=== PATIENT | female | born 1925 | race Caucasian/White ===

== ENCOUNTER 2016-06-29 17:58 | Inpatient (IN) | payer MEDICARE, BC ==
[2016-06-29] MEDS ORDERED: FUROSEMIDE 10 MG/ML 4 ML VIAL ONE (19:51)
[2016-06-29] MEDS ORDERED: LORazepam 2 MG/ML SYRINGE ONE (19:51)
[2016-06-29] MEDS ORDERED: LORazepam 2 MG/ML SYRINGE IV STA (19:54)
[2016-06-29] MEDS ORDERED: FUROSEMIDE 10 MG/ML 4 ML VIAL IV STA (19:54)
[2016-06-29] MEDS ORDERED: IPRATROPIUM-ALBUTEROL 3 ML NEB INHALATION STA (19:56)
[2016-06-29] MEDS ORDERED: traMADol 50 MG TAB PO PRN (22:30)
[2016-06-30] MEDS: FUROSEMIDE 10 MG/ML 4 ML VIAL IV SCH ×3 (03:24→19:30)
[2016-06-30] MEDS: MELATONIN 3 MG TABLET PO SCH ×2 (03:25→22:29)
[2016-06-30] MEDS: ATORVASTATIN 40 MG TAB PO SCH ×2 (03:25→21:55)
[2016-06-30 06:46] LABS: Anisocytosis Slight; Basophils % (A) 0 %; CH 29.1; CHCM 30.9; Eosinophils % (A) 1 %; HCT 23.8 % (34.0-46.0); HDW 3.21; HGB 7.5 gm/dL (11.4-16.0); Hypochromasia Marked; Luc # (Auto) 0.19; Luc % (Auto) 3; Lymphocytes # (A) 0.8 k/uL (1.0-4.8); Lymphocytes % (A) 13 %; MCH 29.7 pg (25.0-35.0); MCHC 31.4 g/dL (31.0-37.0); MCV 94.6 fL (80.0-100.0); Mean Platelet Volume 7.1; Monocytes # (A) 0.4 k/uL (0-1.0); Monocytes % (A) 7 %; Neutrophils # (A) 4.4 k/uL (1.3-7.7); Neutrophils % (A) 75 %; RBC 2.52 m/uL (3.80-5.40); RDW 17.6 % (11.5-15.5); WBC 5.8 k/uL (3.8-10.6); WBC (Perox) 6.07
[2016-06-30] MEDS: LEVALBUTEROL NEB 1.25 MG/3 ML AMP INHALATION SCH ×5 (06:48→21:01)
[2016-06-30 06:50] LABS: Magnesium 1.9 mg/dL (1.6-2.3); Potassium 4.6 mmol/L (3.5-5.1)
[2016-06-30] MEDS: SUCRALFATE 1 GM TAB PO SCH ×2 (08:42→15:29)
[2016-06-30] MEDS: LORATADINE 10 MG TAB PO SCH (08:42)
[2016-06-30] MEDS: PANTOPRAZOLE 40 MG/10 ML VIAL IVP SCH (08:42)
[2016-06-30] MEDS: IRON POLYSACCHARIDES COMPLEX 150 MG CAP PO SCH (08:42)
[2016-06-30] MEDS: LISINOPRIL 10 MG TAB PO SCH (08:42)
[2016-06-30] MEDS: FLUoxetine HCL 20 MG CAP PO SCH (08:42)
[2016-06-30] MEDS: CALCIUM CARBONATE 500 MG CHEWABLE PO SCH (08:42)
--- NOTE | 2016-06-30 09:22 | P.HPIM ---
History of Present Illness H&P Date: 06/30/16 Chief Complaint: Worsening shortness of breath and anemia Patient is an 89-year-old female patient of Dr. Sally bone, who presented to [facility] emergency room transferred from [facility] after presenting with worsening shortness of breath, patient has known history of chronic anemia she was admitted last month that the [facility] and there is a care of my partner Dr. Shea, for evaluation of chronic anemia. Patient is unable to give any significant history, from review of her records, she has known history of chronic gastrointestinal bleeding she is not a candidate for any gastroenterology surgery she has been receiving 1-2 units of red blood cells transfusion every 4-5 weeks. Her past medical history is also significant for hypertension, COPD, peptic ulcer disease her last EGD was done in 2006 Social history patient lived at home until recently she was admitted to [facility] She does not smoke drink alcohol or use any kind of illicit drugs Past surgical history significant for hysterectomy, and cervical fusion with bone graft in the 1980s Review of Systems Cardiovascular: Reports shortness of breath Respiratory: Reports cough Past Medical History Past Medical History: Chest Pain / Angina, Dementia, GERD/Reflux, GI Bleed, Hearing Disorder / Deafness, Hyperlipidemia, Hypertension, Memory Impairment, Mitral Valve Prolapse (MVP), Osteoarthritis (OA), Pneumonia, Respiratory Disorder Additional Past Medical History / Comment(s): UTI, ARTHRITIS,CARPAl TUNNEL, SCOLIOSIS, ANEMIA History of Any Multi-Drug Resistant Organisms: None Reported Past Surgical History: Adenoidectomy, Back Surgery, Hysterectomy, Tonsillectomy Additional Past Surgical History / Comment(s): cervical surgery, CATARACTS Past Anesthesia/Blood Transfusion Reactions: No Reported Reaction Past Psychological History: Anxiety, Depression Smoking Status: Never smoker Past Alcohol Use History: None Reported Past Drug Use History: None Reported - Past Family History Mother Family Medical History: Unable to Obtain Father Family Medical History: Unable to Obtain Medications and Allergies Home Medications Medication Instructions Recorded Confirmed Type ALPRAZolam [Alprazolam Odt] 0.25 mg PO Q8HR PRN 09/24/13 06/29/16 History Acetaminophen Tab [Tylenol] 650 mg PO Q6H 09/24/13 09/24/13 History Acetaminophen [Tylenol] 650 mg PO DAILY 09/24/13 09/24/13 History Benazepril HCl [Lotensin] 20 mg PO DAILY 09/24/13 06/29/16 History Calcium Carbonate [Antacid] 600 mg PO DAILY 09/24/13 06/29/16 History Dok 100 mg PO HS 09/24/13 09/24/13 History FLUoxetine HCL 60 mg PO DAILY 09/24/13 09/24/13 History Flaxseed [Flaxseed Oil] 1,000 mg PO DAILY 09/24/13 06/29/16 History I Caps 1 tab PO BID 09/24/13 09/24/13 History Omeprazole [PriLOSEC] 20 mg PO DAILY 09/24/13 06/29/16 History Simvastatin [Zocor] 80 mg PO HS 09/24/13 06/29/16 History traMADol HCl [Ultram] 50 mg PO Q6H PRN 09/24/13 06/29/16 History Benazepril HCl [Benazepril HCl] 10 mg PO DAILY 06/29/16 06/29/16 History FLUoxetine HCL [Fluoxetine HCl] 20 mg PO DAILY 06/29/16 06/29/16 History Iron Polysaccharide Complex 150 mg PO DAILY 06/29/16 06/29/16 History [Myferon 150] Loratadine [Claritin] 10 mg PO DAILY 06/29/16 06/29/16 History Sucralfate [Sucralfate] 1 tab PO AC-BID 06/29/16 06/29/16 History Allergies Allergy/AdvReac Type Severity Reaction Status Date / Time No Known Allergies Allergy Verified 09/24/13 19:24 Physical Exam Vitals: Vital Signs Temp Pulse Pulse Resp BP Pulse Ox 06/30/16 04:00 98.1 F 85 20 124/69 100 06/30/16 00:00 98.9 F 98 18 120/68 97 06/29/16 20:00 99.0 F 83 28 H 126/66 99 06/29/16 19:58 88 06/29/16 19:50 88 06/29/16 19:38 99.0 F 83 18 126/66 99 Intake and Output 06/29/16 06/30/16 06/30/16 22:59 06:59 14:59 Other: Voiding Method Diaper Diaper # Voids 1 2 # Bowel Movements 1 1 Weight 55 kg 61 kg In general patient is alert confused in no apparent distress HEENT head normocephalic and atraumatic Neck is supple no JVD no goiter no lymphadenopathy Chest exam reveals coarse crackles in both lung lester no wheezing Cardiac exam reveals regular heart sounds S1 and S2 no gallops no murmurs Abdomen is soft nontender no organomegaly with normal bowel sounds Extremity exam reveals no edema no cyanosis or clubbing Neurological examination reveals no gross focal deficits Results CBC & Chem 7: 06/30/16 06:08 06/30/16 06:08 Labs: Abnormal Lab Results - Last 24 Hours (Table) 06/30/16 06/30/16 Range/Units 06:08 06:08 RBC 2.52 L (3.80-5.40) m/uL Hgb 7.5 L (11.4-16.0) gm/dL Hct 23.8 L (34.0-46.0) % RDW 17.6 H (11.5-15.5) % Lymphocytes # 0.8 L (1.0-4.8) k/uL BUN 27 H (7-17) mg/dL Creatinine 1.07 H (0.52-1.04) mg/dL Glucose 114 H (74-99) mg/dL Thrombosis Risk Factor Assmnt - Choose All That Apply Any of the Below Risk Factors Present?: Yes Each Factor Represents 1 point: Heart failure (<1month) Each Risk Factor Represents 3 Points: Age 75 years or older Other congenital or acquired thrombophilia - If yes, enter type in comment: No Thrombosis Risk Factor Assessment Total Risk Factor Score: 4 Thrombosis Risk Factor Assessment Level: Moderate Risk Assessment and Plan Plan: #1 anemia, hemoglobin on presentation 7.5, patient has a known history of chronic blood loss anemia requiring frequent transfusion At this time will give 1 unit of red blood cell transfusion, will give IV Lasix to avoid further pulmonary congestion #2 shortness of breath, which is multifactorial related in part to patient's anemia, d-dimer was done to rule out pulmonary embolism, patient has evidence of pulmonary congestion likely related to acute exacerbation of congestive heart failure, at this time will obtain echocardiogram and BNP and chest x-ray Will treat with IV Lasix as needed #3 underlying history of COPD patient uses updrafts at the snf Will consult pulmonary #4 underlying history of hypertension #5 underlying history of hyperlipidemia #6 known history of peptic ulcer disease Plan at this time to treat with IV Lasix, give 1 unit of red blood cell transfusion Obtain chest x-ray and echocardiogram Obtain BNP and d-dimer Further treatment will depend on testing results
[2016-06-30] MEDS: IPRATROPIUM 0.5 MG/2.5 ML NEBU INHALATION SCH ×4 (10:11→21:01)
--- NOTE | 2016-06-30 10:11 | XR ---
EXAMINATION TYPE: XR chest 1V portable DATE OF EXAM: 06/30/2016 10:04 AM HISTORY: dyspnea. REFERENCE: Previous study dated 09/24/2013. FINDINGS: The heart is enlarged. There is diffuse interstitial change. Please part of this is chronic . There is some atelectasis in the right lower lung. Both CP angles are chronically blunted. Note is made of severe degenerative change of both shoulders. IMPRESSION: 1. CARDIOMEGALY. 2. PLATELIKE ATELECTASIS, RIGHT LOWER LUNG. 3. INTERSTITIAL CHANGE. SOME OF THIS APPEARS CHRONIC. 4. CHRONIC PLEURAL REACTION, BOTH LUNG BASES. 5. SEVERE DEGENERATIVE CHANGE IN BOTH SHOULDERS.
[2016-06-30 10:39] LABS: Iron 15 ug/dL (37-170)
[2016-06-30 10:49] LABS: % Iron Saturation 5.1 % (20-50); Total Iron Binding Capacity 292 ug/dL (265-497)
[2016-06-30 11:50] LABS: Vitamin B12 >1000 pg/mL
--- NOTE | 2016-06-30 14:46 | CONS ---
DATE OF CONSULTATION: Mrs. Callaway is an 89-year-old female who was transferred from [facility] with symptoms of progressive dyspnea. I am not able to obtain any history from the patient. She has history of dementia. Reviewing the records and the transfer notes, patient has recently been discharged from [facility] after being admitted for progressive dyspnea. She has a known history of chronic anemia and has been receiving transfusions on a regular basis. Apparently became more short of breath and was transferred. Reviewing the records from [facility], it appears that she had an echocardiogram, although I am not quite sure about the timing, but the echocardiogram showed a preserved systolic function. Patient is not able to tell me if she had any chest pain. She is not quite sure why she is in the hospital. The anemia has been chronic and she has been seen by the GI service in the past. Her past medical history is remarkable for hypertension, history of peptic ulcer disease. She has history of chronic dementia. Her medications at the time of presentation include albuterol, Protonix, benazepril 10 mg daily, metoprolol tartrate 25 mg twice a day, aspirin, Lipitor 40 mg daily, magnesium. Review of systems is not available. PHYSICAL EXAMINATION: She is an 89-year-old female, alert, confused, in no apparent distress. Blood pressure 116/60 with a heart rate in 90s. HEAD: Normocephalic. EYES: Sclerae nonicteric. NECK: No jugular venous distention. LUNGS: No wheezes or rales. HEART: Regular rate and rhythm. S1, S2, no S3, with systolic murmur heard at the base. No diastolic murmur. No rub. Abdomen is soft and nontender. Positive bowel sounds. No organomegaly. EXTREMITIES: No edema. Intact distal pulses. Lab data revealed NT-proBNP of 4470, troponin less than 0.012. BUN and creatinine 27 and 1.07. Potassium 4.6, hemoglobin of 7.5. EKG sinus mechanism, normal axis and intervals, no acute changes. IMPRESSION: 1. Symptoms of progressive dyspnea, most likely exacerbated by significant anemia. On physical examination there is no overt signs of congestive heart failure and no evidence of fluid overload. 2. History of dementia. 3. Hypertension. RECOMMENDATION: Will try to obtain the prior work-up that was done at [facility]. I would expect we should be able to switch her to oral diuretics tomorrow. She will receive transfusion for Dr. Wang and depending on her progress, further recommendation will be made. I would not recommend any aggressive cardiac work-up. Thank you for this consult. Will follow with you.
[2016-06-30] MEDS: ALPRAZolam 0.25 MG TAB PO PRN (15:29)
[2016-06-30] MEDS ORDERED: methylPREDNISolone SOD SUCCI 125 MG/2 ML VIAL IV STA (20:31)
[2016-06-30] MEDS ORDERED: LORazepam 2 MG/ML SYRINGE IV PRN (20:54)
[2016-06-30] MEDS ORDERED: LORazepam 2 MG/ML SYRINGE ONE (21:02)
[2016-07-01 06:41] LABS: Anisocytosis Slight; Basophils % (A) 0 %; CH 29.3; CHCM 31.3; Eosinophils % (A) 0 %; HCT 25.6 % (34.0-46.0); HDW 3.19; Hypochromasia Moderate; Luc # (Auto) 0.03; Luc % (Auto) 1; Lymphocytes # (A) 0.3 k/uL (1.0-4.8); Lymphocytes % (A) 5 %; MCH 29.5 pg (25.0-35.0); MCHC 31.4 g/dL (31.0-37.0); Mean Platelet Volume 6.8; Monocytes # (A) 0.1 k/uL (0-1.0); Monocytes % (A) 1 %; Neutrophils # (A) 5.1 k/uL (1.3-7.7); Neutrophils % (A) 93 %; RBC 2.72 m/uL (3.80-5.40); RDW 17.4 % (11.5-15.5); WBC 5.4 k/uL (3.8-10.6); WBC (Perox) 5.79
[2016-07-01 06:47] LABS: Potassium 4.4 mmol/L (3.5-5.1); Total Bilirubin 0.3 mg/dL (0.2-1.3); Total Protein 6.1 g/dL (6.3-8.2)
[2016-07-01] MEDS: SUCRALFATE 1 GM TAB PO SCH ×2 (06:57→15:42)
--- NOTE | 2016-07-01 09:04 | NM ---
EXAMINATION TYPE: NM pul vent and perfuse DATE OF EXAM: 07/01/2016 8:55 AM COMPARISON: NONE HISTORY: Elevated d-dimer TECHNIQUE: Utilizing inhalation of 71.5 mCi Tc 99m DTPA aerosol and intravenous injection of 5.5 mCi of Tc 99m MAA, ventilation and perfusion images are acquired post injection in multiple projections. FINDINGS: There are no VQ mismatches. IMPRESSION: THIS EXAMINATION IS LOW PROBABILITY FOR PULMONARY EMBOLUS.
[2016-07-01] MEDS: LEVALBUTEROL NEB (CONC) 1.25 MG/0.5 ML AMP INHALATION SCH ×4 (09:07→20:33)
[2016-07-01] MEDS: IPRATROPIUM 0.5 MG/2.5 ML NEBU INHALATION SCH ×4 (09:08→20:33)
[2016-07-01] MEDS: FUROSEMIDE 10 MG/ML 4 ML VIAL IV SCH (09:18)
[2016-07-01] MEDS: PANTOPRAZOLE 40 MG/10 ML VIAL IVP SCH (09:18)
[2016-07-01] MEDS: FLUoxetine HCL 20 MG CAP PO SCH (09:18)
[2016-07-01] MEDS: LORATADINE 10 MG TAB PO SCH (09:18)
[2016-07-01] MEDS: LISINOPRIL 10 MG TAB PO SCH (09:18)
[2016-07-01] MEDS: CALCIUM CARBONATE 500 MG CHEWABLE PO SCH (09:18)
[2016-07-01] MEDS: IRON POLYSACCHARIDES COMPLEX 150 MG CAP PO SCH (09:18)
[2016-07-01 10:39] VITALS: BMI 29.0
--- NOTE | 2016-07-01 11:31 | P.PN ---
Subjective Patient is alert and awake today. She is a very poor historian and known to have underlying dementia. She appears comfortable today. She denies any shortness of breath. Hemoglobin is relatively stable. She is diuresing well. Objective - Vital Signs Vital signs: Vital Signs Temp 98.1 F 07/01/16 11:17 Pulse 111 H 07/01/16 11:17 Resp 16 07/01/16 11:17 BP 115/56 07/01/16 11:17 Pulse Ox 98 07/01/16 11:17 Intake & Output 06/30/16 07/01/16 07/01/16 18:59 06:59 18:59 Intake Total 120 100 Balance 120 100 Weight 58.5 kg 58.5 kg Intake: IV 100 cefTRIAXone 1,000 mg In 100 Sodium Chloride 0.9% 50 ml @ 100 mls/hr IVPB ONCE STA Rx#:[id number] Oral 120 Other: Voiding Method Diaper Diaper Diaper # Voids 1 - Exam General: The patient is awake and alert, in no distress Eye: there is normal conjunctiva bilaterally. Neck: The neck is supple, there is no JVD. Cardiovascular: Normal S1-S2, no S3-S4, no murmurs. Respiratory: Lungs clear to auscultation bilaterally Gastrointestinal: Abdomen is soft, nontender Musculoskeletal: There is no pedal edema. Neurological:. Speech is normal. Skin: Skin is warm and dry - Labs CBC & Chem 7: 07/01/16 05:44 07/01/16 05:40 Labs: Abnormal Lab Results - Last 24 Hours (Table) 06/30/16 07/01/16 07/01/16 Range/Units 09:29 05:40 05:44 RBC 2.72 L (3.80-5.40) m/uL Hgb 8.0 L (11.4-16.0) gm/dL Hct 25.6 L (34.0-46.0) % RDW 17.4 H (11.5-15.5) % Lymphocytes # 0.3 L (1.0-4.8) k/uL BUN 33 H (7-17) mg/dL Creatinine 1.23 H (0.52-1.04) mg/dL Glucose 181 H (74-99) mg/dL Iron 15 L (37-170) ug/dL % Saturation 5.1 L (20-50) % Total Protein 6.1 L (6.3-8.2) g/dL Albumin 3.1 L (3.5-5.0) g/dL Assessment and Plan Plan: 1. Dyspnea on presentation: Multifactorial 2. Underlying systolic heart failure with suspected mild exacerbation 3. Chronic anemia transfusion dependent 4. Iron deficiency anemia on iron supplement 5. Advanced dementia 5 bilateral diet 6. Essential hypertension This is a 89-year-old female who presented to the hospital with worsening dyspnea. Her dyspnea was thought to be multifactorial secondary to her chronic anemia and possible mild CHF exacerbation. She was started on IV Lasix. I would decrease the dose to 20 mg twice daily today. Hemoglobin appears relatively stable. Patient was recently seen by gastroenterology and is very poor candidate for any endoscopic evaluation given no evidence of ongoing bleed. I would try to get hold of her daughter to discuss goals of care. We will continue current regimen otherwise. Repeat lab work in the morning.
--- NOTE | 2016-07-01 12:42 | ECHOF ---
Referral Reason:dyspnea MEASUREMENTS -------- HEIGHT: 127.0 cm WEIGHT: 58.1 kg BP: 127/63 RVIDd: 2.7 cm (< 3.3) IVSd: 1.1 cm (0.6 - 1.1) LVIDd: 3.6 cm (3.9 - 5.3) LVPWd: 1.1 cm (0.6 - 1.1) IVSs: 1.5 cm LVIDs: 3.1 cm LVPWs: 1.0 cm Ao Diam: 2.7 cm (2.0 - 3.7) AV Cusp: 1.1 cm (1.5 - 2.6) LA Diam: 4.9 cm (2.7 - 3.8) MV EXCURSION: 15.965 mm (> 18.000) MV EF SLOPE: 75 mm/s (70 - 150) EPSS: 0.4 cm MV E Jamshid: 0.38 m/s MV DecT: 182 ms MV A Jamshid: 1.09 m/s MV E/A Ratio: 0.34 RAP: 5.00 mmHg RVSP: 41.83 mmHg FINDINGS -------- Sinus rhythm. This was a technically adequate study. There is mild concentric left ventricular hypertrophy. Overall left ventricular systolic function is normal with, an EF between 55 - 60 %. Mid to basal inferiorlateral is hypokinetic The right ventricle is normal in size. Artifact noted in LA, not seen in any other view. The right atrial size is normal. There is mild aortic valve sclerosis. There is no evidence of aortic regurgitation. Mild mitral annular calcification present. Mild mitral regurgitation is present. Mild tricuspid regurgitation present. There is no evidence of pulmonary hypertension. The right ventricular systolic pressure, as measured by Doppler, is 41.83mmHg. There is no pulmonic regurgitation present. The aortic root size is normal. There is no pericardial effusion. CONCLUSIONS -------- 1. There is mild concentric left ventricular hypertrophy. 2. The right ventricular systolic pressure, as measured by Doppler, is 41.83mmHg. 3. Overall left ventricular systolic function is normal with, an EF between 55 - 60 %. 4. Mid to basal inferiorlateral is hypokinetic 5. Artifact noted in LA, not seen in any other view. 6. There is mild aortic valve sclerosis. 7. Mild mitral annular calcification present. 8. Mild mitral regurgitation is present. 9. Mild tricuspid regurgitation present. 10. There is no evidence of pulmonary hypertension. RESEARCH LEADER: Chen Kingston RDCS
--- NOTE | 2016-07-01 13:25 | P.PN ---
Subjective Principal diagnosis: Progressive dyspnea This is a pleasant 89-year-old female with known history of dementia, hypertension, who presented to the hospital with symptoms of progressive dyspnea. Prior to this admission patient had had multiple transfusions because of anemia. She again was found to be anemic this admission requiring a blood transfusion. Patient did have echocardiogram with Doppler study performed in the past which revealed a normal left ventricular systolic function, repeat echo performed this admission continues to show a normal left ventricular systolic function. The time of our examination today, breathing is stable. Patient continues to be pleasantly confused. Family at bedside. Hemoglobin 8 this morning. Objective - Vital Signs Vital signs: Vital Signs Temp 98.1 F 07/01/16 11:17 Pulse 100 07/01/16 13:02 Resp 16 07/01/16 11:17 BP 115/56 07/01/16 11:17 Pulse Ox 98 07/01/16 11:17 Intake & Output 06/30/16 07/01/16 07/01/16 18:59 06:59 18:59 Intake Total 120 100 Balance 120 100 Weight 58.5 kg 58.5 kg Intake: IV 100 cefTRIAXone 1,000 mg In 100 Sodium Chloride 0.9% 50 ml @ 100 mls/hr IVPB ONCE STA Rx#:[id number] Oral 120 Other: Voiding Method Diaper Diaper Diaper # Voids 1 - Exam PHYSICAL EXAMINATION: HEENT: Head is atraumatic, normocephalic. Pupils equal, round. Neck is supple. There is no elevated jugular venous pressure. HEART EXAMINATION: S1 and S2 systolic murmur is heard. CHEST EXAMINATION: Lungs are clear to auscultation and precussion. No chest wall tenderness is noted on palpation or with deep breathing. ABDOMEN: Soft, nontender. Bowel sounds are heard. No organomegaly noted. EXTREMITIES: 2+ peripheral pulses with no evidence of peripheral edema and no calf tenderness noted. NEUROLOGIC patient is awake, alert and oriented -3. . - Labs CBC & Chem 7: 07/01/16 05:44 07/01/16 05:40 Labs: Abnormal Lab Results - Last 24 Hours (Table) 07/01/16 07/01/16 Range/Units 05:40 05:44 RBC 2.72 L (3.80-5.40) m/uL Hgb 8.0 L (11.4-16.0) gm/dL Hct 25.6 L (34.0-46.0) % RDW 17.4 H (11.5-15.5) % Lymphocytes # 0.3 L (1.0-4.8) k/uL BUN 33 H (7-17) mg/dL Creatinine 1.23 H (0.52-1.04) mg/dL Glucose 181 H (74-99) mg/dL Total Protein 6.1 L (6.3-8.2) g/dL Albumin 3.1 L (3.5-5.0) g/dL Assessment and Plan (1) Dementia Status: Chronic (2) Anemia Narrative/Plan: Acute on chronic. Status: Acute (3) HTN (hypertension) Status: Chronic Plan: From cardiology's perspective, we will recommend to continue the patient on her current medications. We will follow her along with you now on an as-needed basis only, please don't hesitate to call with any questions. DNP note has been reviewed, I agree with a documented findings and plan of care. Patient was seen and examined.
--- NOTE | 2016-07-01 18:35 | P.CNPUL ---
History of Present Illness Consult date: 07/01/16 Reason for consult: dyspnea History of present illness: This is a pleasant 89-year-old female with known history of dementia, hypertension, who presented to the hospital with symptoms of progressive dyspnea. I believe the patient is a retirement resident. I interviewed this patient. I am unable to save the information that was provided to me by her is accurate knowing that she suffers from advanced dementia. Nevertheless, while at rest, the patient seems to be quite comfortable and she is not having any labored breathing. She denied having any cough or sputum production. She denied having any chest pain. I reviewed the chest x-ray from time of admission and there is some increased pulmonary vascular markings and this raises the suspicion for an underlying CHF. Nevertheless the echocardiogram was essentially within normal limits and there is no evidence of any LV dysfunction or valvular abnormalities. Furthermore, the patient had a VQ scan that came back of a low probability. The patient's blood work shows chronic anemia and the patient has had previous blood transfusions for low blood counts. Her d-dimer was essentially negative at 0.86. The proBNP level was 4470 and no other major abnormalities was noted. No reported aspiration. Review of Systems As above, a full review of system cannot be completely obtained. Past Medical History Past Medical History: Chest Pain / Angina, Dementia, GERD/Reflux, GI Bleed, Hearing Disorder / Deafness, Hyperlipidemia, Hypertension, Memory Impairment, Mitral Valve Prolapse (MVP), Osteoarthritis (OA), Respiratory Disorder Additional Past Medical History / Comment(s): UTI, ARTHRITIS,CARPAl TUNNEL, SCOLIOSIS, ANEMIA History of Any Multi-Drug Resistant Organisms: None Reported Past Surgical History: Adenoidectomy, Back Surgery, Hysterectomy, Tonsillectomy Additional Past Surgical History / Comment(s): cervical surgery, CATARACTS Past Anesthesia/Blood Transfusion Reactions: No Reported Reaction Past Psychological History: Anxiety, Depression Smoking Status: Never smoker Past Alcohol Use History: None Reported Past Drug Use History: None Reported - Past Family History Mother Family Medical History: Unable to Obtain Father Family Medical History: Unable to Obtain Medications and Allergies Home Medications Medication Instructions Recorded Confirmed Type ALPRAZolam [Alprazolam Odt] 0.25 mg PO Q12H PRN 09/24/13 06/30/16 History traMADol HCl [Ultram] 50 mg PO Q6H PRN 09/24/13 06/29/16 History Benazepril HCl [Benazepril HCl] 10 mg PO DAILY 06/29/16 06/30/16 History ALPRAZolam [Xanax] 0.25 mg PO BID 06/30/16 06/30/16 History Albuterol Nebulized [Ventolin 2.5 mg INHALATION RT-Q6H PRN 06/30/16 06/30/16 History Nebulized] Aspirin [Adult Low Dose Aspirin EC] 81 mg PO DAILY 06/30/16 06/30/16 History Atorvastatin [Lipitor] 40 mg PO HS@2100 06/30/16 06/30/16 History FLUoxetine HCL [PROzac] 60 mg PO DAILY 06/30/16 06/30/16 History Ferrous Sulfate [Feosol] 325 mg PO DAILY 06/30/16 06/30/16 History Fluticasone Nasal [place] [Flonase 1 spr EA NOSTRIL DAILY 06/30/16 06/30/16 History Nasal [place]] Magnesium Hydroxide [Milk of 2,400 mg PO DAILY PRN 06/30/16 06/30/16 History Magnesia] Metoprolol Tartrate [Lopressor] 25 mg PO BID 06/30/16 06/30/16 History Pantoprazole Sodium [Protonix] 40 mg PO BID@0600,1100 06/30/16 06/30/16 History Sodium Chloride 5% Ophth Soln 1 drops BOTH EYES HS@2100 06/30/16 06/30/16 History [Nathaly 128] traMADol HCL [Ultram] 50 mg PO BID 06/30/16 06/30/16 History Allergies Allergy/AdvReac Type Severity Reaction Status Date / Time No Known Allergies Allergy Verified 06/30/16 11:08 Physical Exam Vitals: Vital Signs Temp Pulse Pulse Resp BP Pulse Ox 07/01/16 16:28 98 07/01/16 16:18 96 07/01/16 16:00 98 F 101 H 16 121/59 95 07/01/16 13:02 100 07/01/16 12:54 104 H 07/01/16 11:17 98.1 F 111 H 16 115/56 98 07/01/16 09:21 100 07/01/16 09:11 106 H 97 07/01/16 08:00 98.1 F 106 H 18 138/70 96 07/01/16 04:00 98.5 F 105 H 18 127/63 96 06/30/16 23:47 98.6 F 108 H 18 134/64 97 06/30/16 21:14 101 H 06/30/16 21:01 101 H 06/30/16 20:00 100 24 121/59 98 Intake and Output 07/01/16 07/01/16 07/01/16 06:59 14:59 22:59 Intake Total 340 120 Balance 340 120 Intake: IV 100 cefTRIAXone 1,000 mg In 100 Sodium Chloride 0.9% 50 ml @ 100 mls/hr IVPB ONCE STA Rx#:[id number] Oral 240 120 Other: Voiding Method Diaper Diaper Diaper # Voids 1 Weight 58.5 kg 58.5 kg Patient Weight 07/02/16 06:59 Weight 58.5 kg The patient appeared well nourished and normally developed. Vital signs as documented. Head exam is unremarkable. No scleral icterus or corneal arcus noted. Neck is without jugular venous distension, thyromegaly, or carotid bruits. Carotid upstrokes are brisk bilaterally. Lungs are clear to auscultation and percussion. Cardiac exam reveals the PMI to be normally sized and situated. Rhythm is regular. First and second heart sounds normal. No murmurs, rubs or gallops. Abdominal exam reveals normal bowel sounds, no masses , no organomegaly and no aortic enlargement. Extremities are nonedematous and both femoral and pedal pulses are normal. Results - Laboratory Findings CBC and BMP: 07/01/16 05:44 07/01/16 05:40 PT/INR, D-dimer D-Dimer 0.86 mg/L FEU (<0.60) H 06/30/16 09:29 Abnormal lab findings: Abnormal Labs 06/30/16 06/30/16 06/30/16 06:08 06:08 09:29 RBC 2.52 L Hgb 7.5 L Hct 23.8 L RDW 17.6 H Lymphocytes # 0.8 L D-Dimer BUN 27 H Creatinine 1.07 H Glucose 114 H Iron 15 L % Saturation 5.1 L Total Protein Albumin 06/30/16 07/01/16 07/01/16 09:29 05:40 05:44 RBC 2.72 L Hgb 8.0 L Hct 25.6 L RDW 17.4 H Lymphocytes # 0.3 L D-Dimer 0.86 H BUN 33 H Creatinine 1.23 H Glucose 181 H Iron % Saturation Total Protein 6.1 L Albumin 3.1 L - Diagnostic Findings Chest x-ray: image reviewed Assessment and Plan Plan: Assessment 1 shortness of breath currently under investigation. Despite her initial presentation for increased dyspnea, the patient is very calm and comfortable this point that she is actually taking well on 2 L of oxygen nasal cannula. No evidence of any pulmonary embolism. No evidence of aspiration. No evidence of pneumonia. Echocardiogram results were noted. 2 dementia 3 chronic anemia with previous episodes of GI bleed and the patient was not found to be a candidate for further endoscopies to diagnose the exact cause of gastrointestinal blood loss. 4 hyperlipidemia 5 hypertension 6 hearing impairment/deafness 7 mitral valve prolapse 8 osteoarthritis Plan Aspiration precautions. Gentle diuresis only for 24 hours and stop the Lasix as of tomorrow. Monitor the oxygenation. Cardiology consultation. We'll follow.
[2016-07-01] MEDS: FUROSEMIDE 10 MG/ML 2 ML VIAL IV SCH (20:36)
[2016-07-01] MEDS: ATORVASTATIN 40 MG TAB PO SCH (20:36)
[2016-07-01] MEDS: MELATONIN 3 MG TABLET PO SCH (20:37)
[2016-07-01 20:41] VITALS: RESP 18
--- NOTE | 2016-07-02 04:16 | P.CONS ---
History of Present Illness - Reason for Consult Consult date: 07/01/16 Anemia - History of Present Illness The patient is an 89-year old female who was admitted to the hospital for anemia and SOB. She was transferred from [facility]. The patient has chronic anemia and has been requiring blood transfusions every 4-5 weeks accoording to her records. She has Alzheimer's dementia and is not candidate for intervention. No reported hematemesis or hematochezia. Review of Systems Constitutional: No fever, chills or unintentional weight loss Neurologic: No headaches, double vision or any sensory or motor changes. History of dementia Cardiopulmonary: No chest pains. Has SOB as per PI Gastrointestinal: See PI above Endocrine: No diabetes or thyroid disease Genitourinary: No hematuria, dysuria or frequency Muskuloskeletal: No joint swelling or pain. History of osteoarthritis Skin: No rashes Psychiatric: No anxiety or depression Past Medical History Past Medical History: Chest Pain / Angina, Dementia, GERD/Reflux, GI Bleed, Hearing Disorder / Deafness, Hyperlipidemia, Hypertension, Memory Impairment, Mitral Valve Prolapse (MVP), Osteoarthritis (OA), Respiratory Disorder Additional Past Medical History / Comment(s): UTI, ARTHRITIS,CARPAl TUNNEL, SCOLIOSIS, ANEMIA History of Any Multi-Drug Resistant Organisms: None Reported Past Surgical History: Adenoidectomy, Back Surgery, Hysterectomy, Tonsillectomy Additional Past Surgical History / Comment(s): cervical surgery, CATARACTS Past Anesthesia/Blood Transfusion Reactions: No Reported Reaction Past Psychological History: Anxiety, Depression Smoking Status: Never smoker Past Alcohol Use History: None Reported Past Drug Use History: None Reported - Past Family History Mother Family Medical History: Unable to Obtain Father Family Medical History: Unable to Obtain Medications and Allergies Home Medications Medication Instructions Recorded Confirmed Type ALPRAZolam [Alprazolam Odt] 0.25 mg PO Q12H PRN 09/24/13 06/30/16 History traMADol HCl [Ultram] 50 mg PO Q6H PRN 09/24/13 06/29/16 History Benazepril HCl [Benazepril HCl] 10 mg PO DAILY 06/29/16 06/30/16 History ALPRAZolam [Xanax] 0.25 mg PO BID 06/30/16 06/30/16 History Albuterol Nebulized [Ventolin 2.5 mg INHALATION RT-Q6H PRN 06/30/16 06/30/16 History Nebulized] Aspirin [Adult Low Dose Aspirin EC] 81 mg PO DAILY 06/30/16 06/30/16 History Atorvastatin [Lipitor] 40 mg PO HS@2100 06/30/16 06/30/16 History FLUoxetine HCL [PROzac] 60 mg PO DAILY 06/30/16 06/30/16 History Ferrous Sulfate [Feosol] 325 mg PO DAILY 06/30/16 06/30/16 History Fluticasone Nasal [place] [Flonase 1 spr EA NOSTRIL DAILY 06/30/16 06/30/16 History Nasal [place]] Magnesium Hydroxide [Milk of 2,400 mg PO DAILY PRN 06/30/16 06/30/16 History Magnesia] Metoprolol Tartrate [Lopressor] 25 mg PO BID 06/30/16 06/30/16 History Pantoprazole Sodium [Protonix] 40 mg PO BID@0600,1100 06/30/16 06/30/16 History Sodium Chloride 5% Ophth Soln 1 drops BOTH EYES HS@2100 06/30/16 06/30/16 History [Nathaly 128] traMADol HCL [Ultram] 50 mg PO BID 06/30/16 06/30/16 History Allergies Allergy/AdvReac Type Severity Reaction Status Date / Time No Known Allergies Allergy Verified 06/30/16 11:08 Physical Exam Vitals: Vital Signs Temp Pulse Pulse Resp BP Pulse Ox 07/01/16 20:44 88 07/01/16 20:33 84 07/01/16 20:00 98.7 F 98 18 116/55 97 07/01/16 16:28 98 07/01/16 16:18 96 07/01/16 16:00 98 F 101 H 16 121/59 95 07/01/16 13:02 100 07/01/16 12:54 104 H 07/01/16 11:17 98.1 F 111 H 16 115/56 98 07/01/16 09:21 100 07/01/16 09:11 106 H 97 07/01/16 08:00 98.1 F 106 H 18 138/70 96 07/01/16 04:00 98.5 F 105 H 18 127/63 96 06/30/16 23:47 98.6 F 108 H 18 134/64 97 Intake and Output 07/01/16 07/01/16 07/02/16 14:59 22:59 06:59 Intake Total 340 120 Balance 340 120 Intake: IV 100 cefTRIAXone 1,000 mg In 100 Sodium Chloride 0.9% 50 ml @ 100 mls/hr IVPB ONCE STA Rx#:[id number] Oral 240 120 Other: Voiding Method Diaper Diaper # Voids 1 Weight 58.5 kg Patient Weight 07/02/16 06:59 Weight 58.5 kg General: Appeared stated age, very pleasant in no acute distress Head and neck: Normocephalic and atraumatic, conjunctivae pink and sclerae not icteric, no masses in the neck or tracheal shifts, no thyromegaly Lungs: Clear to auscultation with no dullness to percussion Heart: Regular, no abnormal sounds, gallops or friction rubs Abdomen: Soft, no masses, organomegalies or tenderness, BS present Extremities: No clubbing, cyanosis or edema Neurologic: Alert. Not oriented. Cranial nerves grossly intact with no gross sensory or motor changes Results CBC & Chem 7: 07/01/16 05:44 07/01/16 05:40 Labs: Abnormal Lab Results - Last 24 Hours (Table) 07/01/16 07/01/16 Range/Units 05:40 05:44 RBC 2.72 L (3.80-5.40) m/uL Hgb 8.0 L (11.4-16.0) gm/dL Hct 25.6 L (34.0-46.0) % RDW 17.4 H (11.5-15.5) % Lymphocytes # 0.3 L (1.0-4.8) k/uL BUN 33 H (7-17) mg/dL Creatinine 1.23 H (0.52-1.04) mg/dL Glucose 181 H (74-99) mg/dL Total Protein 6.1 L (6.3-8.2) g/dL Albumin 3.1 L (3.5-5.0) g/dL Assessment and Plan Plan: 89-year old female with chronic anemia that could be contributing to her presenting symptom of SOB. No overt bleeding. Patient apparently is not a candidate for endoscopic intervention. I will review prior studies and discuss with you.
[2016-07-02 06:43] LABS: Anisocytosis Slight; Basophils % (A) 1 %; CH 29.4; CHCM 31.7; Eosinophils # (A) 0.2 k/uL (0-0.7); Eosinophils % (A) 2 %; HCT 26.5 % (34.0-46.0); HDW 3.23; HGB 8.5 gm/dL (11.4-16.0); Hypochromasia Moderate; Luc # (Auto) 0.16; Luc % (Auto) 2; Lymphocytes # (A) 0.9 k/uL (1.0-4.8); Lymphocytes % (A) 12 %; MCH 29.8 pg (25.0-35.0); MCHC 31.9 g/dL (31.0-37.0); MCV 93.3 fL (80.0-100.0); Mean Platelet Volume 7.1; Monocytes # (A) 0.6 k/uL (0-1.0); Monocytes % (A) 8 %; Neutrophils # (A) 5.5 k/uL (1.3-7.7); Neutrophils % (A) 75 %; RBC 2.84 m/uL (3.80-5.40); RDW 17.4 % (11.5-15.5); WBC 7.3 k/uL (3.8-10.6); WBC (Perox) 7.68
[2016-07-02 06:56] LABS: Potassium 4.1 mmol/L (3.5-5.1)
[2016-07-02] MEDS: SUCRALFATE 1 GM TAB PO SCH (06:59)
[2016-07-02] MEDS: LORATADINE 10 MG TAB PO SCH (08:17)
[2016-07-02] MEDS: IRON POLYSACCHARIDES COMPLEX 150 MG CAP PO SCH (08:17)
[2016-07-02] MEDS: LISINOPRIL 10 MG TAB PO SCH (08:17)
[2016-07-02] MEDS: PANTOPRAZOLE 40 MG/10 ML VIAL IVP SCH (08:17)
[2016-07-02] MEDS: FUROSEMIDE 10 MG/ML 2 ML VIAL IV SCH (08:17)
[2016-07-02] MEDS: CALCIUM CARBONATE 500 MG CHEWABLE PO SCH (08:17)
[2016-07-02] MEDS: FLUoxetine HCL 20 MG CAP PO SCH (08:17)
[2016-07-02] MEDS: LEVALBUTEROL NEB (CONC) 1.25 MG/0.5 ML AMP INHALATION SCH ×3 (09:19→15:32)
[2016-07-02] MEDS: IPRATROPIUM 0.5 MG/2.5 ML NEBU INHALATION SCH ×3 (09:19→15:26)
[2016-07-02 11:34] VITALS: BP 117/61; TEMP 97.6
--- NOTE | 2016-07-02 12:10 | P.PN ---
Subjective This is a pleasant 89-year-old female with known history of dementia, hypertension, who presented to the hospital with symptoms of progressive dyspnea. I believe the patient is a longterm resident. I interviewed this patient. I am unable to save the information that was provided to me by her is accurate knowing that she suffers from advanced dementia. Nevertheless, while at rest, the patient seems to be quite comfortable and she is not having any labored breathing. She denied having any cough or sputum production. She denied having any chest pain. I reviewed the chest x-ray from time of admission and there is some increased pulmonary vascular markings and this raises the suspicion for an underlying CHF. Nevertheless the echocardiogram was essentially within normal limits and there is no evidence of any LV dysfunction or valvular abnormalities. Furthermore, the patient had a VQ scan that came back of a low probability. The patient's blood work shows chronic anemia and the patient has had previous blood transfusions for low blood counts. Her d-dimer was essentially negative at 0.86. The proBNP level was 4470 and no other major abnormalities was noted. No reported aspiration. On 07/02/2016, the patient remains stable. No significant events overnight. No aspiration. No reported shortness of breath or use of accessory muscles of breathing. She is hard of hearing and she is quite demented at this point. Objective - Vital Signs Vital signs: Vital Signs Temp 97.6 F 07/02/16 11:29 Pulse 116 H 07/02/16 11:29 Resp 18 07/02/16 11:29 BP 117/61 07/02/16 11:29 Pulse Ox 97 07/02/16 11:29 Intake & Output 07/01/16 07/02/16 07/02/16 18:59 06:59 18:59 Intake Total 460 100 Balance 460 100 Weight 58.5 kg 59 kg Intake: IV 100 cefTRIAXone 1,000 mg In 100 Sodium Chloride 0.9% 50 ml @ 100 mls/hr IVPB ONCE STA Rx#:[id number] Oral 360 100 Other: Voiding Method Diaper Diaper Diaper # Voids 2 - Exam The patient appeared well nourished and normally developed. Vital signs as documented. Head exam is unremarkable. No scleral icterus or corneal arcus noted. Neck is without jugular venous distension, thyromegaly, or carotid bruits. Carotid upstrokes are brisk bilaterally. Lungs are clear to auscultation and percussion. Cardiac exam reveals the PMI to be normally sized and situated. Rhythm is regular. First and second heart sounds normal. No murmurs, rubs or gallops. Abdominal exam reveals normal bowel sounds, no masses , no organomegaly and no aortic enlargement. Extremities are nonedematous and both femoral and pedal pulses are normal. - Labs CBC & Chem 7: 07/02/16 06:24 07/02/16 06:24 Labs: Abnormal Lab Results - Last 24 Hours (Table) 07/02/16 07/02/16 Range/Units 06:24 06:24 RBC 2.84 L (3.80-5.40) m/uL Hgb 8.5 L (11.4-16.0) gm/dL Hct 26.5 L (34.0-46.0) % RDW 17.4 H (11.5-15.5) % Plt Count 498 H (150-450) k/uL Lymphocytes # 0.9 L (1.0-4.8) k/uL BUN 36 H (7-17) mg/dL Creatinine 1.20 H (0.52-1.04) mg/dL Glucose 123 H (74-99) mg/dL Assessment and Plan Plan: Assessment 1 shortness of breath currently under investigation. Despite her initial presentation for increased dyspnea, the patient is very calm and comfortable this point that she is actually taking well on 2 L of oxygen nasal cannula. No evidence of any pulmonary embolism. No evidence of aspiration. No evidence of pneumonia. Echocardiogram results were noted. On 07/02/2016, the patient's condition remains essentially stable. No significant events overnight. No worsening shortness of breath. Pulse ox on 2 L of oxygen is 97%. The patient can be taken off oxygen to be assessed on room air. 2 dementia 3 chronic anemia with previous episodes of GI bleed and the patient was not found to be a candidate for further endoscopies to diagnose the exact cause of gastrointestinal blood loss. 4 hyperlipidemia 5 hypertension 6 hearing impairment/deafness 7 mitral valve prolapse 8 osteoarthritis Plan Aspiration precautions. May switch this patient to oral Lasix. Wean off FiO2 and assess the patient's oxygenation on room air. Pulmonary we'll sign off.
[2016-07-02 13:38] VITALS: PULSE 108
--- NOTE | 2016-07-02 13:59 | P.DS ---
Providers Date of admission: 06/29/16 19:30 Expected date of discharge: 07/02/16 Attending physician: Jose Wang Consults: 06/29/16 19:58 Consult Physician Routine Consulting Provider: Jim Burris Consult Reason/Comments: CHF Do you want consulting provider notified?: Yes, Notify in am 06/30/16 09:09 Consult Physician Routine Consulting Provider: Nixon Cisse Consult Reason/Comments: dyspnea Do you want consulting provider notified?: Yes Primary care physician: [facility] Course: This is a 89-year-old female with complex past medical history noted below significant for advanced dementia and chronic blood loss anemia that was evaluated previously by surgery and was found to be not a candidate for endoscopic evaluation given her multiple comorbidities. Patient presented to the hospital with worsening shortness of breath and was found to have mild exacerbation of underlying systolic heart failure. She was started on IV Lasix with a great improvement. Her overall condition improved throughout her hospital stay. On the day of discharge, patient appeared comfortable and denied any shortness of breath. She continues to have mild end-expiratory wheezing for which she would finish 5 days course of prednisone. Chest x-ray showed no evidence of underlying pneumonia and pulmonary perfusion scan was low probability for PE. Patient was seen by pulmonology, gastroenterology, and cardiology. Below is a list of her medical problems addressed during this hospitalization 1. Dyspnea on presentation: Multifactorial 2. Underlying systolic heart failure with suspected mild exacerbation 3. Chronic anemia transfusion dependent every 3-4 weeks 4. Iron deficiency anemia on iron supplement 5. Advanced dementia 6. Essential hypertension Plan - Discharge Summary New Discharge Prescriptions: predniSONE 30 mg PO DAILY #15 tab Discharge Medication List ALPRAZolam [Alprazolam Odt] 0.25 mg PO Q12H PRN 09/24/13 [History] traMADol HCl [Ultram] 50 mg PO Q6H PRN 09/24/13 [History] Benazepril HCl 10 mg PO DAILY 06/29/16 [History] Albuterol Nebulized [Ventolin Nebulized] 2.5 mg INHALATION RT-Q6H PRN 06/30/16 [ History] Aspirin [Adult Low Dose Aspirin EC] 81 mg PO DAILY 06/30/16 [History] Atorvastatin [Lipitor] 40 mg PO HS@2100 06/30/16 [History] FLUoxetine HCL [PROzac] 60 mg PO DAILY 06/30/16 [History] Ferrous Sulfate [Iron (65 MG Elemental)] 325 mg PO DAILY 06/30/16 [History] Fluticasone Nasal [place] [Flonase Nasal [place]] 1 spr EA NOSTRIL DAILY 06/30/16 [ History] Magnesium Hydroxide [Milk of Magnesia] 2,400 mg PO DAILY PRN 06/30/16 [History] Metoprolol Tartrate [Lopressor] 25 mg PO BID 06/30/16 [History] Pantoprazole Sodium [Protonix] 40 mg PO BID@0600,1100 06/30/16 [History] Sodium Chloride 5% Ophth Soln [Nathaly 128] 1 drops BOTH EYES HS@2100 06/30/16 [ History] Iron Polysaccharides Complex [Niferex-150] 150 mg PO DAILY cap 07/02/16 [Rx] predniSONE 30 mg PO DAILY #15 tab 07/02/16 [Rx] Discharge Disposition: TRANSFER TO SNF/ECF
[2016-07-02] MEDS: ALPRAZolam 0.25 MG TAB PO PRN (16:02)
== END 2016-07-02 17:07 | DRG 811 ==
LOC: 6SEL 19:30
PROVIDERS: ADMIT Internal Medicine; ATTEND Internal Medicine
DX: D50.0 Iron deficiency anemia secondary to blood loss (chronic) (principal); I50.23 Acute on chronic systolic (congestive) heart failure; J44.9 Chronic obstructive pulmonary disease, unspecified; G30.9 Alzheimer's disease, unspecified; M41.9 Scoliosis, unspecified; F02.80 Dementia in other diseases classified elsewhere, unspecified severity, without behavioral disturbance, psychotic disturbance, mood disturbance, and anxiety; I11.0 Hypertensive heart disease with heart failure; I34.1 Nonrheumatic mitral (valve) prolapse; M19.90 Unspecified osteoarthritis, unspecified site; H91.90 Unspecified hearing loss, unspecified ear; K21.9 Gastro-esophageal reflux disease without esophagitis; F32.9 Major depressive disorder, single episode, unspecified; E78.5 Hyperlipidemia, unspecified; F41.9 Anxiety disorder, unspecified; Z87.11 Personal history of peptic ulcer disease; Z79.899 Other long term (current) drug therapy; Z79.891 Long term (current) use of opiate analgesic; Z71.3 Dietary counseling and surveillance; Z79.82 Long term (current) use of aspirin; Z98.49 Cataract extraction status, unspecified eye; Z87.440 Personal history of urinary (tract) infections; Z87.01 Personal history of pneumonia (recurrent); Z87.19 Personal history of other diseases of the digestive system; Z90.710 Acquired absence of both cervix and uterus; Z98.1 Arthrodesis status
CPT/HCPCS: 71010; 78582; 80048; 80053; 82607; 82746; 83540; 83550; 83735; 83880; 84484; 85025; 85379; 93306; 94640; 94760